=== PATIENT | female | born 1940 | race Caucasian/White ===

== ENCOUNTER 2020-05-14 00:44 | Outpatient (CLI) | payer MEDICARE, BC, SELFPAY ==
[2020-05-14 19:00] LABS: SARS-CoV-2 RNA PCR Negative
== END 2020-05-14 00:45 | disposition home or self-care (01) ==
LOC: ANHCOVIDDT 00:44
PROVIDERS: PCP Internal Medicine; Visit Provider Internal Medicine Gastroenterology
DX: Z01.812 Encounter for preprocedural laboratory examination (principal); Z11.59 Encounter for screening for other viral diseases
CPT/HCPCS: 87635; C9803; U0003

== ENCOUNTER 2020-05-16 03:55 | Day surgery (SDC) | payer MEDICARE, BC, SELFPAY ==
[2020-05-13 09:34] VITALS: BMI 33.3
--- NOTE | 2020-05-16 09:04 | WPDANESEPPF ---
Anes - Initial Pre Proc Eval Procedure: Operation Date: 05/16/20 10:00 Proposed Procedures p Screening Colonoscopy - Haroldo Tam MD Date/Time: 05/16/20 09:04 Surgeon: Haroldo Tam MD Pre Op Diagnosis: Neoplasm Screening Patient Data Age: 79 Gender: F Height: 5 ft 1 in Weight: 80 kg Allergies Allergy/AdvReac Type Severity Reaction Status Date / Time No Known Allergies Allergy Unverified 05/13/20 09:30 Home Medications Medication Instructions Recorded Confirmed Type atorvastatin 40 mg tablet 40 mg PO DAILY 02/05/20 05/13/20 History cholecalciferol (vitamin D3) 50 50 mcg PO DAILY 02/05/20 05/13/20 History mcg (2,000 unit) capsule dulaglutide 0.75 mg/0.5 mL 0.75 mg SUB-Q WEEKLY 02/05/20 05/13/20 History subcutaneous pen injector fenofibric acid (choline) 45 mg 45 mg PO DAILY 02/05/20 05/13/20 History capsule,delayed release lisinopril 10 mg tablet 10 mg PO DAILY 02/05/20 05/13/20 History magnesium oxide 400 mg PO DAILY 02/05/20 05/13/20 History mecobalamin (vitamin B12) 1,000 1,000 mcg PO DAILY 02/05/20 05/13/20 History mcg chewable tablet metformin 500 mg/5 mL oral solution 500 mg PO BID 02/05/20 05/13/20 History Patient hx anesthesia problems: none Family hx anesthesia problems: none PMFSH Past Medical History Medical History Cholecystectomy planned Degenerative arthritis of knee, bilateral Diabetes A1C approx 2 months ago = 6.9 History of gout Kidney disease Mass of skin of right shoulder Surgical History Surgical History (Updated 05/16/20 @ 09:05 by Juan Alberto Vera MD) H/O cardiac catheterization H/O tubal ligation History of appendectomy History of gastric surgery Family History Family History Mother Diabetes mellitus Cerebrovascular accident Cancer Heart disease Father Heart disease Sibling Diabetes mellitus Social History Social History Smoking status: Never smoker Alcohol intake: never Additional living arrangements comments: Spouse- Jasbir Modrusic Gender identity (if verbalized by the patient): Female Anes - Wander Final PreProcedure Day of Procedure 05/16/20 09:04 Patient weight: obese Heart: regular rate and rhythm Lungs: clear to auscultation Airway: Mallampati scale class II Neurological: alert and oriented Last oral intake: >/= 8 hours ASA classification: III Emergent: no Anesthetic plan: proceed Anesthesia type and monitoring: general GIVS and standard monitoring Informed Consent: The patient's anesthetic plan and its attendant risks and benefits were discussed with the patient/family/POA. Questions were solicited and answers provided to the satisfaction of the patient/family/POA.
[2020-05-16 09:28] LABS: Glucose Point of Care 89 (65-105)
[2020-05-16 09:29] VITALS: BP 150/66; PULSE 59; RESP 18; TEMP 36.4; O2SAT 99; BMI 33.4
[2020-05-16] MEDS: LACTATED RINGERS 1,000 ML 150 ML IV CONT (09:32)
--- NOTE | 2020-05-16 09:53 | PM.HPGS ---
History of Present Illness History of Present Illness Consent: Risks, benefits, and alternatives have been discussed and questions answered. Patient agrees to proceed with procedure. Chief complaint: Neoplasm Screening Narrative: Paola Cooper is a 79 year old female referred for screening colonoscopy. Her last colonoscopy was over 10 years ago [facility] Past Medical History Medical History Cholecystectomy planned Degenerative arthritis of knee, bilateral Diabetes A1C approx 2 months ago = 6.9 History of gout Kidney disease Mass of skin of right shoulder Surgical History Surgical History H/O cardiac catheterization H/O tubal ligation History of appendectomy History of gastric surgery Family History Family History Mother Diabetes mellitus Cerebrovascular accident Cancer Heart disease Father Heart disease Sibling Diabetes mellitus Social History Social History Smoking status: Never smoker Alcohol intake: never Additional living arrangements comments: Spouse- Jasbir Cooper Gender identity (if verbalized by the patient): Female Meds Home Medications and Allergies Home Medications Medication Instructions Recorded Confirmed Type atorvastatin 40 mg tablet 40 mg PO DAILY 02/05/20 05/13/20 History cholecalciferol (vitamin D3) 50 50 mcg PO DAILY 02/05/20 05/13/20 History mcg (2,000 unit) capsule dulaglutide 0.75 mg/0.5 mL 0.75 mg SUB-Q WEEKLY 02/05/20 05/13/20 History subcutaneous pen injector fenofibric acid (choline) 45 mg 45 mg PO DAILY 02/05/20 05/13/20 History capsule,delayed release lisinopril 10 mg tablet 10 mg PO DAILY 02/05/20 05/13/20 History magnesium oxide 400 mg PO DAILY 02/05/20 05/13/20 History mecobalamin (vitamin B12) 1,000 1,000 mcg PO DAILY 02/05/20 05/13/20 History mcg chewable tablet metformin 500 mg/5 mL oral solution 500 mg PO BID 02/05/20 05/13/20 History Allergies Allergy/AdvReac Type Severity Reaction Status Date / Time No Known Allergies Allergy Unverified 05/16/20 09:27 Vital Signs Vital Signs - 24 hr 05/16/20 09:29 Temperature 36.4 C Pulse Rate 59 L Respiratory Rate 18 Blood Pressure 150/66 H Pulse Oximetry 99 Exam Resp: Auscultation: clear to auscultation bilaterally Cardio: Rate: regular rate Rhythm: regular rhythm GI: GI Palp: Yes Soft to palpation and No Tenderness to palpation present (GI) Assessment and Plan Assessment and plan (1) Colon cancer screening: Code(s): Z12.11 - Encounter for screening for malignant neoplasm of colon Status: Acute Assessment and Plan: Colonoscopy with possible biopsy or polypectomy or cautery or injection of substances.
[2020-05-16 10:25] VITALS: BP 105/50; PULSE 62; RESP 19; O2SAT 100
[2020-05-16 10:35] VITALS: BP 114/54; PULSE 57; RESP 21; O2SAT 96
[2020-05-16 10:45] VITALS: BP 145/68; PULSE 55; RESP 16; O2SAT 100
== END 2020-05-16 10:55 | disposition home or self-care (01) ==
PROVIDERS: PCP Internal Medicine; Visit Provider Internal Medicine Gastroenterology
PROC: 0DJD8ZZ Inspection of Lower Intestinal Tract, Via Natural or Artificial Opening Endoscopic (ICD-10-PCS; CPT 45378; principal; 2020-05-16 10:00)
DX: Z12.11 Encounter for screening for malignant neoplasm of colon (principal); D12.3 Benign neoplasm of transverse colon; K57.30 Diverticulosis of large intestine without perforation or abscess without bleeding; K64.8 Other hemorrhoids; E11.9 Type 2 diabetes mellitus without complications; Z79.4 Long term (current) use of insulin; I10 Essential (primary) hypertension; E78.5 Hyperlipidemia, unspecified; E66.9 Obesity, unspecified; Z68.33 Body mass index [BMI] 33.0-33.9, adult; Z98.84 Bariatric surgery status; Z79.899 Other long term (current) drug therapy
CPT/HCPCS: 45385; 88305; J2704; J7120

== ENCOUNTER 2023-02-24 07:26 | Outpatient (CLI) | payer MEDICARE, BC, SELFPAY ==
--- NOTE | ~2023-02-24 | CT_ITS ---
EXAMINATION: CT chest abdomen pelvis w con DATE: 02/24/2023 08:03 INDICATION: Metastatic malignant neoplasm TECHNIQUE: Transaxial computed tomographic images of the chest, abdomen, and pelvis were obtained aft er the administration of 100 cc of Omnipaque 350 intravenous contrast. The dose-length product (DLP) was 678.69 mGy-cm. Automated exposure control and iterative reconstruction technique were employed. COMPARISON: None FINDINGS: CHEST CT: There is a 7 mm nodule of the right lower lobe abutting the major fissure on image 59. There is a 5 m m nodule of the left upper lobe on image 28. A calcified nodule of the left upper lobe is consistent with old granulomatous disease. There is an ill-defined 7 mm nodule of the left lower lobe on image 7 2. Dependent atelectasis is noted. No pleural effusion or pneumothorax. There is mild atelectasis ant eriorly in the right upper lobe. There is a 1.7 x 1.0 cm mass in the lower outer quadrant of the left breast which appears to have an associated biopsy marker. There appear to recent surgical changes of the left breast. There is mild thoracic spondylosis. No pathologically enlarged thoracic lymph nod es are identified. The heart size is normal. ABDOMEN/PELVIS CT: The gallbladder is surgically absent. There is mild enlargement of the common bile duct and central i ntrahepatic ducts which is likely due to post cholecystectomy state. The liver, spleen, and adrenal glands are normal. There is a 3.9 x 2.8 cm mass in the body of the gray creas. There is ductal dilatation in the tail of the pancreas. 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 The mass abuts the splenic artery and superior mesenteric vein. There are soft tissue attenuation masses of the right kidney measuring up to 1.4 cm. Cysts of the left kidney measure up to 5 mm. No pa thologically enlarged abdominal or pelvic lymph nodes are identified. No free intraperitoneal gas or evidence of bowel obstruction. Colonic diverticulosis is present without evidence of diverticulitis. There are at least three fat-containing hernias of the right upper quadrant. There is severe lumbar s pondylosis. IMPRESSION: 1. Mass of the pancreatic body, consistent with pancreatic adenocarcinoma. The mass causes thrombosis of the splenic vein and abuts the superior mesenteric artery and superior mesenteric vein. 2. Bilateral pulmonary nodules as described above, indeterminate. 3. Soft tissue density masses of the right kidney which could be proteinaceous cysts versus neoplasm. Recommend MRI without and with contrast if further evaluation is desired. 4. Left breast mass with possible associated biopsy marker. Correlate with outside pathology. Reviewed, dictated and finalized at location L. IMPRESSION: 1. Mass of the pancreatic body, consistent with pancreatic adenocarcinoma. The mass causes thrombosis of the splenic vein and abuts the superior mesenteric ar fredy and superior mesenteric vein. 2. Bilateral pulmonary nodules as described above, indeterminate. 3. Soft tissue density masses of the right kidney which could be proteinaceous cysts versus neoplasm. Recommend MRI without and with contrast if further evalu ation is desired. 4. Left breast mass with possible associated biopsy marker. Correlate with outs edie pathology.
--- NOTE | ~2023-02-24 | CT_ITS ---
EXAMINATION: CT brain w con DATE: 02/24/2023 08:06 INDICATION: Metastatic disease. TECHNIQUE: Computed tomography (CT) of the head was performed with 100 mL Omnipaque-350 intravenous c ontrast. Sagittal and coronal reconstructions were performed. The mA was adjusted according to patien t size. Iterative reconstruction technique was employed. The dose-length product was 605.33 mGy-cm. COMPARISON: None FINDINGS: No acute intracranial hemorrhage, acute infarction or abnormal extra axial fluid collection.. There i s mild scattered white matter hypoattenuation consistent with chronic small vessel ischemic disease. Symmetric prominence of the sulci and subarachnoid spaces overlying the convexities consistent with mild to moderate age-appropriate diffuse cerebral volume loss. Ventricles are normal and symmetric. N o mass/mass effect. No abnormally enhancing brain lesions identified. The orbits, paranasal sinuses a nd mastoid air cells are normal. Intracranial calcified cerebral atherosclerosis is noted. IMPRESSION: 1. No acute intracranial process or abnormally enhancing brain lesions. 2. Age-related changes and mild to moderate diffuse volume loss and mild scattered white matter hypoa ttenuation consistent with chronic small vessel ischemic disease. Reviewed, dictated and finalized at location A. IMPRESSION: 1. No acute intracranial process or abnormally enhancing brain lesions. 2. Age-related changes and mild to moderate diffuse volume loss and mild scatte red white matter hypoattenuation consistent with chronic small vessel ischemic disease.
[2023-02-24 07:53] LABS: Estimated Glomerular Filt Rate 43
== END 2023-02-24 07:27 | disposition home or self-care (01) ==
PROVIDERS: PCP Internal Medicine; Visit Provider Internal Medicine Hematology & Oncology
DX: C79.9 Secondary malignant neoplasm of unspecified site (principal); R93.0 Abnormal findings on diagnostic imaging of skull and head, not elsewhere classified
CPT/HCPCS: 70460; 71260; 74177; Q9967

== ENCOUNTER 2023-03-03 13:52 | Outpatient (CLI) | payer MEDICARE, BC, SELFPAY ==
[2023-03-07 15:42] LABS: CA 15-3 23 U/mL (<32); CA 19-9 940 U/mL (<34)
== END 2023-03-03 13:53 | disposition home or self-care (01) ==
LOC: ANHLAB 13:54
PROVIDERS: PCP Internal Medicine; Visit Provider Internal Medicine Hematology & Oncology
DX: K86.89 Other specified diseases of pancreas (principal); N63.20 Unspecified lump in the left breast, unspecified quadrant
CPT/HCPCS: 36415; 86300; 86301

== ENCOUNTER 2023-03-23 13:42 | Outpatient (CLI) | payer MEDICARE, BC, SELFPAY ==
--- NOTE | ~2023-03-23 | MMUS_ITS ---
EXAMINATION: MM diagnostic chelsie BI w miranda, US breast LT limited HISTORY: Palpable lump of the lower left breast TECHNIQUE: Craniocaudal, mediolateral, and mediolateral oblique 3-D tomosynthesis images of the breas ts were performed and synthetic 2-D images were generated. CAD analysis was submitted and interpreted . High resolution limited left breast ultrasound was performed. COMPARISON: 07/05/2019, 06/25/2019 BREAST PARENCHYMAL COMPOSITION: There are scattered areas of fibroglandular density. FINDINGS: MAMMOGRAPHIC FINDINGS: There is a stable mass in the middle third of the upper outer quadrant of the right breast. There are stable masses in the middle third of the outer left breast at the 3:00 location and the posterior th ird of the lower breast at the 6:00 location. The right breast mass in the left breast mass at the 6: 00 location demonstrate biopsy change. No suspicious mass, calcification, or architectural distortion are identified. There has been no suspicious interval change. No suspicious mammographic correlate i s identified for the reported palpable abnormality of concern. ULTRASOUND: There is an approximately 1.5 x 0.8 cm mass at the 5:00 location, 3 cm from the nipple at the area of the palpable abnormality of the breast which corresponds to the previously biopsied mammographic mas s. No suspicious cystic or solid mass is identified. IMPRESSION: 1. No mammographic or sonographic evidence of malignancy. 2. Recommend annual screening mammography while the patient remains in good health. BI-RADS Category 2: Benign finding(s). Reviewed, dictated and finalized at location A. IMPRESSION: 1. No mammographic or sonographic evidence of malignancy. 2. Recommend annual screening mammography while the patient remains in good hea lth. BI-RADS Category 2: Benign finding(s).
== END 2023-03-23 13:43 | disposition home or self-care (01) ==
PROVIDERS: PCP Internal Medicine; Visit Provider Internal Medicine Hematology & Oncology
DX: N63.20 Unspecified lump in the left breast, unspecified quadrant (principal); R92.2 Inconclusive mammogram
CPT/HCPCS: 76642; 77062; 77066; G0279

== ENCOUNTER 2023-04-12 13:15 | Outpatient (CLI) | payer MEDICARE, BC, SELFPAY ==
--- NOTE | ~2023-04-12 | PE_ITS ---
EXAMINATION: PET skull to mid thigh DATE: 04/12/2023 15:28 INDICATION: Malignant neoplasm of pancreas. TECHNIQUE: Blood glucose level was 118 mg/dL. 10.119 mCi of 18-fluorodeoxyglucose (18-FDG) was admini stered i.v. Low dose computed tomography (CT) images were acquired from the base of the brain to the proximal thighs for attenuation correction and anatomic localization. Automated exposure control was employed. Dose-length product (DLP) was 486 mGy-cm. Positron emission tomography (PET) images were ac quired in the same distribution. COMPARISON: CT chest, abdomen, and pelvis 02/24/2023 FINDINGS: Head/neck: There are no pathologically enlarged lymph nodes. Chest: A calcified left lung nodule and calcified left hilar lymph nodes are consistent with old gran ulomatous disease. There is mild atelectasis bilaterally. There is a 10 mm nodule in right lower lobe abutting the hilum with maximum SUV of 2.2. There is a 6 mm nodule in left lower lobe with maximum S UV of 2.0. There are groundglass opacities in right lower lobe with maximum SUV of 1.9, likely inflam mation. No pleural effusion. The heart size is normal. There are coronary artery calcifications. No p ericardial effusion. Abdomen/pelvis/proximal thighs: The liver is normal. There are changes of cholecystectomy. The spleen is normal. There is an ill-defined mass in the body of the pancreas with maximum SUV of 8.0. The rig ht adrenal gland are normal. There is a 2.2 cm mass of fat in left adrenal gland, consistent with a m yelolipoma. There is a 13 mm hemorrhagic cyst in right kidney. Left kidney is normal. There are are s upraumbilical ventral hernias containing fat. There is diverticulosis of the colon without evidence o f diverticulitis. There are changes of appendectomy. There are no pathologically enlarged lymph nodes . There is increased activity in normal-sized right retrocrural, periceliac, and aortocaval nodes. Th ere is no free intraperitoneal fluid. There is increased activity in right ischium with maximum SUV o f 5.6. There is increased activity in L1 vertebral body with maximum SUV of 4.1. IMPRESSION: 1. Mass in body of the pancreas with increased activity, consistent with primary adenocarcinoma. 2. Bilateral lung nodules with mild activity, which may be metastatic disease or granulomatous diseas e. 3. Increased activity in normal-sized right retrocrural, periceliac, and aortocaval nodes suspicious for metastatic disease. 4. Increased activity in right ischium and L1 vertebral body without abnormal CT correlate suspicious for metastatic disease. Reviewed, dictated and finalized at location A. IMPRESSION: 1. Mass in body of the pancreas with increased activity, consistent with primar y adenocarcinoma. 2. Bilateral lung nodules with mild activity, which may be metastatic disease o r granulomatous disease. 3. Increased activity in normal-sized right retrocrural, periceliac, and aortoc aval nodes suspicious for metastatic disease. 4. Increased activity in right ischium and L1 vertebral body without abnormal C T correlate suspicious for metastatic disease.
[2023-04-12 14:11] LABS: Glucose Point of Care 118 mg/dl (65-105)
== END 2023-04-12 13:16 | disposition home or self-care (01) ==
PROVIDERS: PCP Internal Medicine; Visit Provider Radiology Radiation Oncology
DX: C25.9 Malignant neoplasm of pancreas, unspecified (principal); R91.8 Other nonspecific abnormal finding of lung field
CPT/HCPCS: 78815; A9552

== ENCOUNTER 2023-04-25 11:01 | Outpatient (CLI) | payer MEDICARE, BC, SELFPAY ==
[2023-04-25 11:17] LABS: Basophils Absolute Auto 0.1 K/mm3 (0.0-0.1); Basophils Percent Auto 0.6 % (0.2-1.2); Eosinophils Absolute Auto 0.1 K/mm3 (0-0.3); Eosinophils Percent Auto 0.5 % (0-4.4); Hematocrit 42.1 % (37.0-47.0); Hemoglobin 13.3 g/dL (12.0-15.0); Immature Granulocyte Absolute 0.11 K/mm3 (0.00-0.031); Immature Granulocyte Percent A 0.9 % (0-0.5); Lymphocytes Absolute Auto 1.49 K/mm3 (0.9-3.2); Lymphocytes Percent Auto 11.8 % (18.3-44.2); Mean Corpuscular HGB Conc 31.6 g/dl (32-36); Mean Corpuscular Hemoglobin 28.1 pg (26-34); Mean Platelet Volume 10.3 fl (7.4-10.4); Monocytes Absolute Auto 0.9 K/mm3 (0.1-0.6); Monocytes Percent Auto 7.4 % (2.6-8.5); Neutrophils Percent Auto 78.8 % (45.5-73.1); Platelet Count Result 312 k/mm3 (150-375); Red Blood Count 4.73 M/mm3 (4.2-5.4); Red Cell Distribution Width 16.1 % (11.5-14.5); White Blood Count 12.7 K/mm3 (4.5-10.0)
[2023-04-25 11:26] LABS: Blood Urea Nitrogen 37 mg/dL (8-26); Carbon Dioxide 27 mmol/L (22-30); Chloride 102 mmol/L (98-109); Estimated Glomerular Filt Rate 33; Glucose 160 mg/dL (70-105); Ionized Calcium (POC) 1.47 mmol/L (1.11-1.31); Potassium 4.2 mmol/L (3.5-4.9); Sodium 138 mmol/L (138-146)
[2023-04-25 11:51] LABS: Alanine Aminotransferase 16 U/L (6-35); Albumin Level 3.9 g/dL (3.5-5.1); Alkaline Phosphatase 153 U/L (38-126); Anion Gap 7 mmol/L (8-16); Aspartate Amino Transferase 18 U/L (14-36); Bilirubin,Total 0.6 mg/dL (0.2-1.3); Blood Urea Nitrogen 37 mg/dL (7-17); Calcium 11.6 mg/dL (8.4-10.2); Carbon Dioxide 28 mmol/L (22-30); Chloride 101 mmol/L (98-107); Estimated Glomerular Filt Rate 39; Glucose 153 mg/dL (65-110); Potassium 4.4 mmol/L (3.4-5.0); Sodium 136 mmol/L (137-145)
== END 2023-04-25 11:02 | disposition home or self-care (01) ==
LOC: ANHLAB 11:03
PROVIDERS: PCP Internal Medicine; Visit Provider Internal Medicine Hematology & Oncology
DX: C25.1 Malignant neoplasm of body of pancreas (principal)
CPT/HCPCS: 36415; 80047; 80053; 85025

== ENCOUNTER 2023-05-05 11:44 | Outpatient (CLI) | payer MEDICARE, BC, SELFPAY ==
[2023-05-05 12:40] LABS: Basophils Percent Auto 0.3 % (0.2-1.2); Eosinophils Absolute Auto 0.1 K/mm3 (0-0.3); Eosinophils Percent Auto 0.4 % (0-4.4); Hematocrit 41.9 % (37.0-47.0); Hemoglobin 13.2 g/dL (12.0-15.0); Immature Granulocyte Absolute 0.14 K/mm3 (0.00-0.031); Lymphocytes Absolute Auto 0.89 K/mm3 (0.9-3.2); Lymphocytes Percent Auto 6.3 % (18.3-44.2); Mean Corpuscular HGB Conc 31.5 g/dl (32-36); Mean Corpuscular Volume 88.8 fl (80-100); Mean Platelet Volume 10.4 fl (7.4-10.4); Monocytes Absolute Auto 0.9 K/mm3 (0.1-0.6); Monocytes Percent Auto 6.1 % (2.6-8.5); Neutrophils Absolute Auto 12.2 K/mm3 (1.3-6.7); Neutrophils Percent Auto 85.9 % (45.5-73.1); Platelet Count Result 291 k/mm3 (150-375); Red Blood Count 4.72 M/mm3 (4.2-5.4); Red Cell Distribution Width 15.9 % (11.5-14.5); White Blood Count 14.2 K/mm3 (4.5-10.0)
[2023-05-05 13:33] LABS: Alanine Aminotransferase 15 U/L (6-35); Albumin Level 3.8 g/dL (3.5-5.1); Alkaline Phosphatase 155 U/L (38-126); Anion Gap 9 mmol/L (8-16); Aspartate Amino Transferase 19 U/L (14-36); Bilirubin,Total 0.8 mg/dL (0.2-1.3); Blood Urea Nitrogen 31 mg/dL (7-17); Calcium 11.6 mg/dL (8.4-10.2); Carbon Dioxide 28 mmol/L (22-30); Chloride 97 mmol/L (98-107); Estimated Glomerular Filt Rate 39; Glucose 220 mg/dL (65-110); Potassium 4.1 mmol/L (3.4-5.0); Sodium 134 mmol/L (137-145)
[2023-05-08 04:54] LABS: CA 19-9 4044 U/mL (<34)
== END 2023-05-05 11:45 | disposition home or self-care (01) ==
LOC: ANHLAB 11:46
PROVIDERS: PCP Internal Medicine; Visit Provider Internal Medicine Hematology & Oncology
DX: C25.1 Malignant neoplasm of body of pancreas (principal)
CPT/HCPCS: 36415; 80053; 85025; 86301